=== PATIENT | male | born 1955 | race Caucasian/White ===

== ENCOUNTER 2019-08-04 19:29 | Emergency (ER) | payer MEDICARE ==
[~2019-08-04] VITALS: Ht 182.9 cm; Wt 88.6 kg
--- NOTE | 2019-08-04 19:43 | NUR ---
PATIENT CAME FROM URGENT CARE. C/O LEFT FLANK PAIN X 3 WKS. FEVER THIS AFTERNOON. DENIES RECENT EXPOSURE TO SICK PEOPLE. NO N/V.
[2019-08-04] MEDS ORDERED: normal saline 1000ML IV soln IV ONE (19:50)
[2019-08-04 19:59] LABS: CLARITY,URINE CLOUDY (Clear); COLOR,URINE YELLOW (Yellow); GLUCOSE, URINE NEGATIVE (Neg); KETONES,URINE NEGATIVE (Neg); LEUKOCYTE ESTERASE ,URINE MODERATE (Neg); NITRITES, URINE NEGATIVE (Neg); OCCULT BLOOD,URINE MODERATE (Neg); PROTEIN,URINE 100 mg/dl (Neg)
[2019-08-04 20:10] LABS: UA COLLECTION TYPE CLN CATCH MIDSTREAM
[2019-08-04 20:13] LABS: BACTERIA,URINE 1+ /HPF (Neg); RBC,URINE 20-50 /HPF (0-2); SQUAMOUS EPITHELIAL CELL,UR MODERATE /LPF (FEW); TRANSITIONAL EPI CELLS,URINE MODERATE /HPF; WBC,URINE TNTC /HPF (0-4)
[2019-08-04 21:20] LABS: BASOPHILS # (AUTO) 0.1 X10'3 (0-0.2); EOSINOPHILS % (AUTO) 0.2 % (0-6); HEMATOCRIT 32.3 % (42.0-52.0); HEMOGLOBIN 10.5 g/dl (14.0-17.9); LYMPHOCYTES # (AUTO) 1.1 X10'3 (1.1-4.8); LYMPHOCYTES % (AUTO) 10.2 % (21-51); MEAN CORPUSCULAR HEMOGLOBIN 26.9 PG (27.0-31.0); MEAN CORPUSCULAR HGB CONC 32.7 g/dL (33.0-36.5); MEAN CORPUSCULAR VOLUME 82.5 FL (78-98); MONOCYTES # (AUTO) 1.1 X10'3 (0-0.9); MONOCYTES % (AUTO) 9.7 % (2-12); NEUTROPHILS # (AUTO) 8.9 X10'3 (1.8-7.7); NEUTROPHILS % (AUTO) 78.9 % (42-75); PLATELET COUNT 508 X10'3 (140-440); RED BLOOD COUNT 3.91 X10'6 (4.70-6.10); RED CELL DISTRIBUTION WIDTH 16.1 % (11.5-14.5); WHITE BLOOD COUNT 11.2 X10'3 (4.5-11.0)
[2019-08-04] MEDS ORDERED: morphine 4 MG/ML inj SYRINge IV PRN (21:20)
[2019-08-04] MEDS ORDERED: ketorolac trometh. 30mg/ml inj. IV ONE (21:20)
[2019-08-04] MEDS ORDERED: ondansetron/PF 4mg/2ml inj IV ONE (21:20)
[2019-08-04 21:31] LABS: ALANINE AMINOTRANSFERASE 37 U/L (12-78); ALBUMIN 2.2 G/DL (3.4-5.0); ALBUMIN/GLOBULIN RATIO 0.4 (1.1-1.5); ALKALINE PHOSPHATASE 362 IU/L (46-116); ANION GAP 12 (8-16); ASPARTATE AMINO TRANSFERASE 26 U/L (10-37); BILIRUBIN,TOTAL 0.4 MG/DL (0.1-1.0); BLOOD UREA NITROGEN 13 MG/DL (7-18); CALCIUM 8.7 MG/DL (8.5-10.1); CHLORIDE 100 MMOL/L (99-107); CREATININE 1.44 MG/DL (0.60-1.10); GLUCOSE 129 MG/DL (70-104); POTASSIUM 4.3 MMOL/L (3.5-5.1); SODIUM 135 MMOL/L (135-145); TOTAL CARBON DIOXIDE 23.5 MMOL/L (24-32); TOTAL PROTEIN 7.8 G/DL (6.4-8.2); eGFR 49 ML/MIN
[2019-08-04] MEDS ORDERED: acetaminophen 325mg tablet PO ONE (21:40)
--- NOTE | 2019-08-04 21:51 | NUR ---
Fever 101.4, just given toradol 30 mg iv, msiv 4 mg, and zofran 4 mg iv. Also tylenol 650 po. KHADIJAH Jhaveri aware of temp. Pt taken to CT now. After administration of msiv, pt reports all pain gone. Pt able to stand independantly and get into WC
[2019-08-04] MEDS ORDERED: CefTRIAXone 2gm/D5W 50ml 50 ML IV ONE (21:55)
[2019-08-04] MEDS ORDERED: ONDA4TAB6 PO (22:54)
[2019-08-04] MEDS ORDERED: METR-159 PO (22:54)
[2019-08-04] MEDS ORDERED: HYDR-4383 PO (22:54)
[2019-08-04] MEDS ORDERED: CIPR-230 PO (22:54)
[2019-08-04 23:16] VITALS: BP 109/50
== END 2019-08-04 23:41 | disposition home or self-care (01) ==
LOC: ER 19:29
DX: N39.0 Urinary tract infection, site not specified (principal); N32.1 Vesicointestinal fistula; K63.89 Other specified diseases of intestine; R10.32 Left lower quadrant pain; Z87.442 Personal history of urinary calculi
CPT/HCPCS: 36415; 74176; 80053; 81001; 83605; 84145; 85025; 87040; 87088; 96365; 96375; 99284; J0696; J1885; J2270; J2405; J7030

== ENCOUNTER 2021-02-16 19:35 | Inpatient (IN) | payer OTHER ==
[2021-02-08 14:46] LABS: CLARITY,URINE CLEAR (Clear); COLOR,URINE STRAW (Yellow); GLUCOSE, URINE NEGATIVE (Neg); KETONES,URINE NEGATIVE (Neg); LEUKOCYTE ESTERASE ,URINE NEGATIVE (Neg); NITRITES, URINE NEGATIVE (Neg); OCCULT BLOOD,URINE TRACE-INTACT (Neg); PROTEIN,URINE NEGATIVE (Neg); UA COLLECTION TYPE CLN CATCH MIDSTREAM; UROBILINOGEN,URINE 0.2 E.U/dL (0.2-1.0)
[2021-02-08 14:51] LABS: BASOPHILS % (AUTO) 0.4 % (0-1); EOSINOPHILS % (AUTO) 0.8 % (0-6); LYMPHOCYTES # (AUTO) 1.3 X10'3 (1.1-4.8); LYMPHOCYTES % (AUTO) 22.3 % (21-51); MEAN CORPUSCULAR HEMOGLOBIN 30.5 PG (27.0-31.0); MEAN CORPUSCULAR VOLUME 92.3 FL (78-98); MEAN PLATELET VOLUME 8.6 FL (7.4-10.4); MONOCYTES # (AUTO) 0.4 X10'3 (0-0.9); MONOCYTES % (AUTO) 7.9 % (2-12); NEUTROPHILS # (AUTO) 3.9 X10'3 (1.8-7.7); NEUTROPHILS % (AUTO) 68.6 % (42-75); PRE OP HEMATOCRIT 42.8 % (42.0-52.0); PRE OP HEMOGLOBIN 14.1 g/dL (14.0-17.9); PRE OP PLATELET COUNT 234 X10'3 (140-440); RED BLOOD COUNT 4.63 X10'6 (4.70-6.10); RED CELL DISTRIBUTION WIDTH 14.6 % (11.5-14.5)
[2021-02-08 14:54] LABS: BACTERIA,URINE FEW /HPF (Neg); RBC,URINE 0-2 /HPF (0-2); SQUAMOUS EPITHELIAL CELL,UR FEW /LPF (FEW); WBC,URINE 0-4 /HPF (0-4)
[2021-02-08 14:59] LABS: ALBUMIN 3.7 G/DL (3.4-5.0); ALKALINE PHOSPHATASE 110 IU/L (46-116); BLOOD UREA NITROGEN 22 MG/DL (7-18); BUN/CREATININE RATIO 16.4 (5.4-32.0); CALCIUM 9.1 MG/DL (8.5-10.1); CHLORIDE 107 MMOL/L (99-107); CREATININE 1.34 MG/DL (0.60-1.10); PRE OP ALT 22 U/L (30-65); PRE OP ANION GAP 9 (8-16); PRE OP AST 15 U/L (10-37); PRE OP BILIRUB, TOTAL 0.4 MG/DL (0.0-1.0); PRE OP GLUCOSE 112 MG/DL (70-104); PRE OP POTASSIUM 3.4 MMOL/L (3.4-5.1); PRE OP SODIUM 143 MMOL/L (135-145); TOTAL CARBON DIOXIDE 27.3 MMOL/L (24-32); TOTAL PROTEIN 7.4 G/DL (6.4-8.2); eGFR 53 ML/MIN
[~2021-02-16] VITALS: Ht 177.8 cm; Wt 93.0 kg
[2021-02-16] VITALS (19 sets, daily range): BP systolic 107–159; BP diastolic 50–86
[~2021-02-16 19:35] MED LIST: ASPI81TA52 PO; ATOR20TA PO; CELE-28 PO; HYDR25TA5 PO; HYDROmorphone 1 mg/ml syringe IV PRN; HYDROmorphone inj. 0.5 MG/0.5 ML DISP.SYRIN IV PRN; LOSA25TA96 PO; MIDAZolam 1mg/ml 10ml vial ONE; ROPIVAcaine 0.2% (10 MG/5 ML) BOLUS INJECTION ADDCANAL PRN; ROPIVAcaine 0.5% (5mg/ml) 30ml vial ONE; acetaminophen 325mg tablet PO PRN; bisacodyl 10mg suppository rectal RC PRN; ceFAZolin 2gm in dextrose, iso 50 ML IV ONE; diphenhydrAMINE 25mg capsule PO PRN; epiNEPHrine 1 mg/ml inj ONE; famotidine 20mg tablet PO ONE; fentaNYL/PF 50MCG/1 ML 2ML syringe ONE; ketorolac trometh. 30mg/ml inj. ONE; magnesium hydroxide 30ml (MOM) UD suspension PO PRN; meperidine/PF 25mg/ml syringe IV PRN; morphine 2 MG/ML inj. syringe IV PRN; morphine 4 MG/ML inj SYRINge IV PRN; morphine 4 MG/ML inj SYRINge ONE; ondansetron/PF 4mg/2ml inj IV PRN; oxyCODONE IR 5mg (immed. release) tablet PO PRN; proCHLORperazine 10 MG/2 ml inj IV PRN; ringers solution, lacted 1,000 ML IV SCH; tranexamic acid 1gm/0.7% sal. 100 ML IV ONE; vancomycin 1,000mg inj ONE; vancomycin 1,500 MG in NS 300ml IV soln IV ONE
--- NOTE | 2021-02-16 19:58 | NUR ---
Received from OR via , accompanied by Anesthesiologist DR HWANG and report given by Anesthesiolgist. PT PRESENTS WITH 18G RIGHT HAND, LEFT KNEE DRESSING AND WRAP WITH POWDER PACK, DRY AND INTACT, VSS Addendum: 02/16/21 at 2016 by Tari Evans RN, RN Amended: Links added.
[2021-02-16] MEDS ORDERED: vancomycin/NS 1 GM ADD-VANTAGE 250 ML IV SCH (20:00)
[2021-02-16] MEDS ORDERED: ROPIVAcaine 0.2%/PF PUMP/bolus 545 ML ADDCANAL SCH (20:15)
[2021-02-16] MEDS: acetaminophen 325mg tablet PO SCH (20:20)
[2021-02-16] MEDS ORDERED: atorvastatin 20mg tablet PO SCH (21:00)
[2021-02-16] MEDS ORDERED: sennosides 8.6mg tablet PO SCH (21:00)
--- NOTE | 2021-02-16 21:18 | NUR ---
Report called to receiving nurse JENI TIMMONS. Transferred via [facility]OSPITAL BED WITH 1 BAG Belongings. PT HOOKED UP TO VITALS MONITOR WITH CALL MUÑOZ AND TV IN REACH. BED LOCKED AND IN LOW POSITION. . Special Issues communicated to receiving nurse. Addendum: 02/16/21 at 2139 by Tari Evans RN RN Amended: Links added.
[2021-02-16] MEDS ORDERED: tranexamic acid inj. 900 MG in normal saline 100ml IV soln 100 ML IV ONE (23:00)
[2021-02-16] MEDS: gabapentin 300mg capsule PO SCH (23:59)
[2021-02-17] VITALS: BP 127/66
[2021-02-17] MEDS: potassium cl 20mEq in 1/2 NS 1,000 ML IV SCH ×3 (00:05→11:35)
[2021-02-17] MEDS: acetaminophen 325mg tablet PO SCH ×2 (01:49→08:48)
[2021-02-17] MEDS: ceFAZolin/D5W- 1GM premix 50 ML IV SCH ×2 (01:50→08:57)
[2021-02-17 04:00] VITALS: BP 137/86
--- NOTE | 2021-02-17 06:32 | NUR ---
Patient in room [facility]. I have received report from JENNIFER TIMMONS and had the opportunity to ask questions and assume patient care.
[2021-02-17 08:00] VITALS: BP 148/71
[2021-02-17] MEDS ORDERED: celeCOXIB 100mg capsule PO SCH (08:00)
[2021-02-17] MEDS ORDERED: aspirin 81mg, enteric-coated 1 TAB TABLET.DR PO SCH (08:00)
[2021-02-17] MEDS ORDERED: HYDROchlorothiazide 25mg tablet PO SCH (08:00)
[2021-02-17] MEDS ORDERED: losartan 50mg tablet PO SCH (08:00)
[2021-02-17] MEDS ORDERED: aspirin 325mg tablet PO SCH (08:30)
[2021-02-17 08:50] LABS: BASOPHILS % (AUTO) 0.1 % (0-1); EOSINOPHILS % (AUTO) 0 % (0-6); HEMATOCRIT 39.5 % (42.0-52.0); HEMOGLOBIN 13.3 g/dl (14.0-17.9); LYMPHOCYTES # (AUTO) 0.8 X10'3 (1.1-4.8); LYMPHOCYTES % (AUTO) 7.1 % (21-51); MEAN CORPUSCULAR HEMOGLOBIN 30.6 PG (27.0-31.0); MEAN CORPUSCULAR HGB CONC 33.6 g/dL (33.0-36.5); MEAN PLATELET VOLUME 8.6 FL (7.4-10.4); MONOCYTES # (AUTO) 0.5 X10'3 (0-0.9); MONOCYTES % (AUTO) 4.5 % (2-12); NEUTROPHILS # (AUTO) 9.6 X10'3 (1.8-7.7); NEUTROPHILS % (AUTO) 88.3 % (42-75); PLATELET COUNT 227 X10'3 (140-440); RED BLOOD COUNT 4.34 X10'6 (4.70-6.10); WHITE BLOOD COUNT 10.9 X10'3 (4.5-11.0)
[2021-02-17 08:52] VITALS: BP_SYST 147
[2021-02-17] MEDS: gabapentin 300mg capsule PO SCH (08:53)
[2021-02-17 09:41] LABS: ANION GAP 9 (8-16); CHLORIDE 106 MMOL/L (99-107); POTASSIUM 3.8 MMOL/L (3.5-5.1); SODIUM 139 MMOL/L (135-145); TOTAL CARBON DIOXIDE 24.2 MMOL/L (24-32)
--- NOTE | 2021-02-17 13:19 | NUR ---
pt discharged at 1300 to home in private vehicle. Belongings sent with pt. Iv removed, no needs at this time. Pt educated on post op follow up. pt discharged in stable condition.
[2021-02-18] MEDS ORDERED: acetaminophen 325mg tablet PO PRN (19:35)
== END 2021-02-17 13:13 | disposition home or self-care (01) | DRG 470 ==
LOC: PAS 19:35 → SUR 3N 19:36 → PAS 23:08 → SUR 3N 23:08
PROVIDERS: ADMIT Orthopaedic Surgery; ATTEND Orthopaedic Surgery
PROC: 3E0T3BZ Introduction of Anesthetic Agent into Peripheral Nerves and Plexi, Percutaneous Approach (ICD-10-PCS; 2021-02-16)
PROC: 3E0T33Z Introduction of Anti-inflammatory into Peripheral Nerves and Plexi, Percutaneous Approach (ICD-10-PCS; 2021-02-16)
PROC: 8E0Y0CZ Robotic Assisted Procedure of Lower Extremity, Open Approach (ICD-10-PCS; 2021-02-16)
PROC: 0SRD0LZ Replacement of Left Knee Joint with Medial Unicondylar Synthetic Substitute, Open Approach (ICD-10-PCS; principal; 2021-02-16 17:13)
DX: M17.12 Unilateral primary osteoarthritis, left knee (principal); D62 Acute posthemorrhagic anemia; I10 Essential (primary) hypertension; Z79.899 Other long term (current) drug therapy; Z79.82 Long term (current) use of aspirin
CPT/HCPCS: Z7506; Z7508; 36415; 73560; 80051; 80053; 81001; 82948; 85025; 87081; 97110; 97116; 97161; 97530; A4338; A4615; A6258; A6454; A7000; C1713; C1758; C1776; C9250; G0378; J0171; J0690; J1885; J2250; J2270; J2795; J3010; J3370; J3480; J7040; J7120; U0003; U0005

== ENCOUNTER 2021-10-11 11:57 | Day surgery (SDC) | payer MEDICARE ==
[2021-10-11] VITALS (8 sets, daily range): BP systolic 123–134; BP diastolic 62–86
[~2021-10-11] VITALS: Ht 180.3 cm; Wt 88.2 kg
[~2021-10-11 11:57] MED LIST changes: +ALLO100T49 PO; -ASPI81TA52 PO; -CELE-28 PO; -HYDROmorphone 1 mg/ml syringe IV PRN; -HYDROmorphone inj. 0.5 MG/0.5 ML DISP.SYRIN IV PRN; -MIDAZolam 1mg/ml 10ml vial ONE; -ROPIVAcaine 0.2% (10 MG/5 ML) BOLUS INJECTION ADDCANAL PRN; -ROPIVAcaine 0.5% (5mg/ml) 30ml vial ONE; -acetaminophen 325mg tablet PO PRN; -bisacodyl 10mg suppository rectal RC PRN; -ceFAZolin 2gm in dextrose, iso 50 ML IV ONE; -diphenhydrAMINE 25mg capsule PO PRN; -epiNEPHrine 1 mg/ml inj ONE; -famotidine 20mg tablet PO ONE; -fentaNYL/PF 50MCG/1 ML 2ML syringe ONE; -ketorolac trometh. 30mg/ml inj. ONE; -magnesium hydroxide 30ml (MOM) UD suspension PO PRN; -meperidine/PF 25mg/ml syringe IV PRN; -morphine 2 MG/ML inj. syringe IV PRN; -morphine 4 MG/ML inj SYRINge IV PRN; -morphine 4 MG/ML inj SYRINge ONE; -ondansetron/PF 4mg/2ml inj IV PRN; -oxyCODONE IR 5mg (immed. release) tablet PO PRN; -proCHLORperazine 10 MG/2 ml inj IV PRN; -ringers solution, lacted 1,000 ML IV SCH; -tranexamic acid 1gm/0.7% sal. 100 ML IV ONE; -vancomycin 1,000mg inj ONE; -vancomycin 1,500 MG in NS 300ml IV soln IV ONE
[2021-10-11] MEDS ORDERED: LISI20TA28 PO (12:46)
[2021-10-11] MEDS ORDERED: AMLO10TA13 PO (12:46)
[2021-10-11] MEDS ORDERED: CELE-85 PO (12:46)
[2021-10-11] MEDS ORDERED: ALLO100T15 PO (12:49)
[2021-10-11] MEDS ORDERED: HYDR25TA4 PO (12:49)
[2021-10-11] MEDS ORDERED: ATOR20TA66 PO (12:49)
[2021-10-11] MEDS ORDERED: LOSA100T57 PO (12:49)
[2021-10-11] MEDS ORDERED: midazolam 1 mg/ML 2ml injection ONE (13:02)
[2021-10-11] MEDS ORDERED: LIDOcaine 1%/PF 5ML 10 MG/ML VIAL ONE (13:02)
[2021-10-11] MEDS ORDERED: fentaNYL/PF 50MCG/1 ML 2ML syringe ONE (13:02)
== END 2021-10-11 14:10 | disposition home or self-care (01) ==
LOC: SSTAY O 11:57
PROVIDERS: ATTEND Radiology Vascular & Interventional Radiology
DX: K91.872 Postprocedural seroma of a digestive system organ or structure following a digestive system procedure (principal); M10.9 Gout, unspecified; I10 Essential (primary) hypertension; M19.90 Unspecified osteoarthritis, unspecified site; Z72.89 Other problems related to lifestyle; Z79.899 Other long term (current) drug therapy; Z85.038 Personal history of other malignant neoplasm of large intestine; Z96.659 Presence of unspecified artificial knee joint; Z98.890 Other specified postprocedural states; Z90.49 Acquired absence of other specified parts of digestive tract; Y83.8 Other surgical procedures as the cause of abnormal reaction of the patient, or of later complication, without mention of misadventure at the time of the procedure
CPT/HCPCS: 49406; 87070; J3490; Z7610; 76942; J2250; J3010; J7030